=== PATIENT | male | born 1945 | race African-American/Black ===

== ENCOUNTER 2016-08-11 02:42 | Emergency (ER) | payer BC ==
[~2016-08-11] VITALS: Ht 180.3 cm; Wt 87.5 kg
[2016-08-11] MEDS ORDERED: IV NORMAL SALINE 1000ML BAG 1,000 ML IV SCH (03:00)
--- NOTE | 2016-08-11 03:03 | PHYS DOC ---
Past Medical History Past Medical History: Hypertension Past Surgical History: No Surgical History Alcohol Use: None Drug Use: None Adult General Chief Complaint Chief Complaint: DIZZY/LIGHT HEADED HPI HPI Patient is a 71 year old male who presents with complaint of dizziness and " not feeling right." Patient states that this started shortly prior to arrival. Patient states that he went to bed at approximately 0130 this morning. Patient awoke with dizziness that worsens when he stood up and tried to use the restroom. Patient states that he is having numbness over both upper extremities into the back of his head. Patient denies any loss of vision or difficulty with swallowing. Patient states that he feels like he is having slight difficulty coming up with words at this time. Patient is accompanied by his who states that the patient does not sound different from baseline and she does not feel that he is slurring his words. Patient denies any pain currently. Patient states that he is having a hard time explaining exactly how he is feeling that he just knows that he does not feel well. Patient states that he is on blood pressure medication but is unable to name the medication that he takes currently. Review of Systems Review of Systems Constitutional: Denies fever or chills [] Eyes: Denies change in visual acuity, redness, or eye pain [] HENT: Denies nasal congestion or sore throat [] Respiratory: Denies cough or shortness of breath [] Cardiovascular: Denies chest pain or edema [] GI: Denies abdominal pain, nausea, vomiting, bloody stools or diarrhea [] : Denies dysuria or hematuria [] Musculoskeletal: Denies back pain or joint pain [] Integument: Denies rash or skin lesions [] Neurologic: Numbness, dizziness, denies weakness [] Current Medications Current Medications Current Medications Medications (Trade) Dose Ordered Sig/Solo Start Time Stop Time Status Last Admin Dose Admin Hydralazine HCl (Apresoline) 10 mg 1X ONCE 08/11/16 03:15 08/11/16 03:16 DC 08/11/16 03:10 10 MG Sodium Chloride 1,000 ml @ 100 mls/hr Q10H 08/11/16 03:00 08/11/16 12:59 08/11/16 03:08 100 MLS/HR Allergies Allergies Allergies Coded Allergies Type Severity Reaction Last Updated Verified No Known Drug Allergies 08/11/16 No Physical Exam Physical Exam Constitutional: Well developed, well nourished, no acute distress, non-toxic appearance. [] HENT: Normocephalic, atraumatic, bilateral external ears normal, oropharynx moist, no oral exudates, nose normal. [] Eyes: PERRLA, EOMI, conjunctiva normal, no discharge. [] Neck: Normal range of motion, no tenderness, supple, no stridor. [] Cardiovascular:Heart rate regular rhythm, no murmur [] Lungs & Thorax: Bilateral breath sounds clear to auscultation [] Abdomen: Bowel sounds normal, soft, no tenderness, no masses, no pulsatile masses. [] Skin: Warm, dry, no erythema, no rash. [] Back: No tenderness, no CVA tenderness. [] Extremities: No tenderness, no cyanosis, no clubbing, ROM intact, no edema. [] Neurologic: Alert and oriented X 3, normal motor function, normal sensory function, no focal deficits noted. [] Current Patient Data Vital Signs Vital Signs Date Time Temp Pulse Resp B/P (MAP) Pulse Ox O2 Delivery O2 Flow Rate FiO2 08/11/16 03:10 66 177/91 08/11/16 03:00 98.0 18 92 Room Air 98.0 Lab Values Laboratory Tests Test 08/11/16 03:05 08/11/16 03:40 White Blood Count 8.0 x10^3/uL (4.0-11.0) Red Blood Count 3.57 x10^6/uL (4.30-5.70) L Hemoglobin 11.6 g/dL (13.0-17.5) L Hematocrit 34.8 % (39.0-53.0) L Mean Corpuscular Volume 98 fL (79-100) Mean Corpuscular Hemoglobin 33 pg (25-35) Mean Corpuscular Hemoglobin Concent 33 g/dL (31-37) Red Cell Distribution Width 15.7 % (11.5-14.5) H Platelet Count 211 x10^3/uL (140-400) Neutrophils (%) (Auto) 63 % (31-73) Lymphocytes (%) (Auto) 26 % (24-48) Monocytes (%) (Auto) 9 % (0-9) Eosinophils (%) (Auto) 1 % (0-3) Basophils (%) (Auto) 1 % (0-3) Neutrophils # (Auto) 5.1 x10^3uL (1.8-7.7) Lymphocytes # (Auto) 2.1 x10^3/uL (1.0-4.8) Monocytes # (Auto) 0.7 x10^3/uL (0.0-1.1) Eosinophils # (Auto) 0.1 x10^3/uL (0.0-0.7) Basophils # (Auto) 0.1 x10^3/uL (0.0-0.2) Prothrombin Time 12.5 SEC (11.7-14.0) Prothrombin Time INR 1.0 (0.8-1.1) PTT 30 SEC (24-38) Sodium Level 141 mmol/L (136-145) Potassium Level 3.7 mmol/L (3.5-5.1) Chloride Level 104 mmol/L (98-107) Carbon Dioxide Level 26 mmol/L (21-32) Anion Gap 11 (6-14) Blood Urea Nitrogen 25 mg/dL (8-26) Creatinine 1.2 mg/dL (0.7-1.3) Estimated GFR (Cockcroft-Gault) 72.2 BUN/Creatinine Ratio 21 (6-20) H Glucose Level 151 mg/dL (70-99) H Calcium Level 9.1 mg/dL (8.5-10.1) Magnesium Level 2.1 mg/dL (1.8-2.4) Total Bilirubin 0.3 mg/dL (0.2-1.0) Aspartate Amino Transferase (AST) 35 U/L (15-37) Alanine Aminotransferase (ALT) 48 U/L (16-63) Alkaline Phosphatase 45 U/L (46-116) L Total Protein 7.7 g/dL (6.4-8.2) Albumin 3.8 g/dL (3.4-5.0) Albumin/Globulin Ratio 1.0 (1.0-1.7) Urine Collection Type Unknown Urine Color Yellow Urine Clarity Clear Urine pH 7.5 Urine Specific [place] 1.010 Urine Protein Negative mg/dL (NEG-TRACE) Urine Glucose (UA) Negative mg/dL (NEG) Urine Ketones (Stick) Negative mg/dL (NEG) Urine Blood Negative (NEG) Urine Nitrite Negative (NEG) Urine Bilirubin Negative (NEG) Urine Urobilinogen Dipstick 0.2 mg/dL (0.2 mg/dL) Urine Leukocyte Esterase Negative (NEG) Urine RBC 0 /HPF (0-2) Urine WBC 0 /HPF (0-4) Urine Squamous Epithelial Cells Occ /LPF Urine Bacteria 0 /HPF (0-FEW) Laboratory Tests 08/11/16 03:05 Laboratory Tests 08/11/16 03:05 EKG EKG Interpreted by me: Heart rate 66, sinus rhythm, frequent PACs, normal intervals , normal axis, no acute ST/T-wave abnormalities present [] Radiology/Procedures Radiology/Procedures One view AP chest x-ray interpreted by me: No infiltrate, no effusions, normal cardiac silhouette [facility] [address] [place] [address] IMAGING REPORT Signed PATIENT: TONA SPENCER ACCOUNT: [id number] : 1945 LOCATION: ER AGE: 71 SEX: M EXAM STATUS: REG ER ORD. PHYSICIAN: ERINN SHOEMAKER MD REASON: dizziness PROCEDURE: CT HEAD WO CONTRAST INDICATION: Hypertension and weakness COMPARISON: None TECHNIQUE: Axial CT images obtained through the head. One or more of the following individualized dose reduction techniques were utilized for this examination: 1. Automated exposure control; 2. Adjustment of the mA and/or kV according to patient size; 3. Use of iterative reconstruction technique. FINDINGS: No midline shift. Ventricles and sulci are prominent. Basilar cistern patent. No gross hemorrhage or intracranial mass. No displaced skull fracture. Regions of low attenuation of the white matter. IMPRESSION: No acute intracranial hemorrhage. Regions of low attenuation of the white matter. Nonspecific but frequently secondary to chronic small vessel ischemic disease. Electronically signed by: Fabiola Turk (August 11, 2016 03:50:08) DICTATED and SIGNED BY: FABIOLA TURK MD DATE: 08/11/16 0350 CC: ERINN SHOEMAKER MD; NABILA JAIMES ~ [] Course & Med Decision Making Course & Med Decision Making Pertinent Labs and Imaging studies reviewed. (See chart for details) Patient was found have significantly elevated blood pressure in the emergency department. Patient was given IV hydralazine with adequate reduction and patient 's blood pressure. The patient's symptoms were reported as on reevaluation. Patient shows no evidence of any focal neurologic deficits. On further questioning, patient admits to excessive sodium intake yesterday which may have contributed to the patient's blood pressure spike. Advised to continue on patient's home medications and to follow-up in the next 2-3 days the patient's primary doctor for reevaluation. Advised return emergency department for any worsening symptoms. Patient voiced understanding and in agreement with treatment plan. Dragon Disclaimer Dragon Disclaimer This electronic medical record was generated, in whole or in part, using a voice recognition dictation system. Departure Departure Impression: Primary Impression: Hypertension Disposition: 01 HOME, SELF-CARE Condition: IMPROVED Referrals: NABILA JAIMES (PCP) Patient Instructions: Hypertension Additional Instructions: Follow-up with your primary doctor in the next 2-3 days. Return to the emergency department for any worsening symptoms. Problem Qualifiers Primary Impression: Hypertension Hypertension type: essential hypertension Qualified Codes: I10 - Essential ( primary) hypertension ERINN SHOEMAKER MD August 11, 2016 03:03
[2016-08-11 03:13] LABS: BASO # 0.1 x10^3/uL (0.0-0.2); BASO % 1 % (0-3); EOS % 1 % (0-3); HEMATOCRIT 34.8 % (39.0-53.0); HEMOGLOBIN 11.6 g/dL (13.0-17.5); LYMPH # 2.1 x10^3/uL (1.0-4.8); LYMPH % 26 % (24-48); MEAN CORPUSCULAR HEMOGLOBIN 33 pg (25-35); MEAN CORPUSCULAR HGB CONC 33 g/dL (31-37); MEAN CORPUSCULAR VOLUME 98 fL (79-100); MONO % 9 % (0-9); NEUT % 63 % (31-73); PLATELET COUNT 211 x10^3/uL (140-400); RED BLOOD COUNT 3.57 x10^6/uL (4.30-5.70); RED CELL DISTRIBUTION WIDTH 15.7 % (11.5-14.5)
[2016-08-11] MEDS ORDERED: hydrALAZINE 20 MG/ML VIAL. IVP ONE (03:15)
[2016-08-11 03:21] LABS: CALCIUM 9.1 mg/dL (8.5-10.1); CREATININE 1.2 mg/dL (0.7-1.3); GFR 72.2; POTASSIUM 3.7 mmol/L (3.5-5.1)
[2016-08-11 03:23] LABS: PROTHROMBIN TIME PATIENT 12.5 SEC (11.7-14.0)
[2016-08-11 03:27] LABS: ALBUMIN 3.8 g/dL (3.4-5.0); MAGNESIUM 2.1 mg/dL (1.8-2.4); TOTAL BILIRUBIN 0.3 mg/dL (0.2-1.0); TOTAL PROTEIN 7.7 g/dL (6.4-8.2)
[2016-08-11 03:48] LABS: BILIRUBIN,URINE NEGATIVE (NEG); GLUCOSE,URINE NEGATIVE (NEG); NITRITE,URINE NEGATIVE (NEG); PH,URINE 7.5; PROTEIN,URINE NEGATIVE (NEG-TRACE); UROBILINOGEN,URINE 0.2 mg/dL (0.2 mg/dL)
--- NOTE | 2016-08-11 03:51 | RAD ---
INDICATION: Hypertension and weakness COMPARISON: None TECHNIQUE: Axial CT images obtained through the head. One or more of the following individualized dose reduction techniques were utilized for this examination: 1. Automated exposure control; 2. Adjustment of the mA and/or kV according to patient size; 3. Use of iterative reconstruction technique. FINDINGS: No midline shift. Ventricles and sulci are prominent. Basilar cistern patent. No gross hemorrhage or intracranial mass. No displaced skull fracture. Regions of low attenuation of the white matter. IMPRESSION: No acute intracranial hemorrhage. Regions of low attenuation of the white matter. Nonspecific but frequently secondary to chronic small vessel ischemic disease. Electronically signed by: Cullen Chase (August 11, 2016 03:50:08)
[2016-08-11 03:53] LABS: BACTERIA,URINE 0 /HPF (0-FEW); RBC,URINE 0 /HPF (0-2); SQUAMOUS EPITHELIAL CELL,UR OCC /LPF; WBC,URINE 0 /HPF (0-4)
[2016-08-11 04:38] VITALS: BP 140/80
--- NOTE | 2016-08-11 06:30 | EKG ---
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
--- NOTE | 2016-08-11 07:16 | RAD ---
Portable chest, 08/11/2016: History: Hypertension, weakness Comparison is made to a study from 01/28/2012. The heart size and pulmonary vascularity are normal. There is mild tortuosity of the thoracic aorta. No pulmonary infiltrate is seen. There is no evidence of pleural fluid. Moderate spurring is present in the spine. IMPRESSION: No acute cardiopulmonary abnormality is detected.
== END 2016-08-11 04:47 | disposition home or self-care (01) ==
LOC: ER 02:42
DX: I10 Essential (primary) hypertension (principal); R42 Dizziness and giddiness; R20.0 Anesthesia of skin; R53.1 Weakness
CPT/HCPCS: 36415; 70450; 71010; 80053; 81001; 83735; 85027; 85610; 85730; 93005; 96361; 96374; 99285; J0360; J7030

== ENCOUNTER → 2016-08-17 | Outpatient (CLI) | payer BC, MEDICARE ==
[2016-08-11 04:38] VITALS: BP 140/80
--- NOTE | 2016-08-17 10:23 | RAD ---
Renal ultrasound with deep Doppler, 08/17/2016: History: Chronic kidney disease, hypertension The right kidney measures 9.1 cm in length while the left kidney measures 9.8 cm. There is no evidence of hydronephrosis or a renal mass. The renal parenchymal echogenicity is within normal limits. No abnormal perinephric process is seen. Doppler interrogation of the main renal arteries was performed including grayscale, color-flow and spectral Doppler analysis.. No high velocity is seen in either main renal artery to suggest significant renal artery stenosis. No parvus/tardus phenomena is evident. IMPRESSION: 1. No significant renal abnormality is detected. 2. No duplex evidence of significant renal artery stenosis.
== END | disposition home or self-care (01) ==
LOC: US 07:44
PROVIDERS: ATTEND Internal Medicine Nephrology
DX: I12.9 Hypertensive chronic kidney disease with stage 1 through stage 4 chronic kidney disease, or unspecified chronic kidney disease (principal); N18.3 Chronic kidney disease, stage 3 (moderate)
CPT/HCPCS: 76770; 93975

== ENCOUNTER 2017-07-01 21:37 | Emergency (ER) | payer BC, MEDICARE ==
[2017-07-01 22:01] LABS: ADD MAN DIFF? NO
[2017-07-01 22:05] LABS: BASO % 1 % (0-3); EOS # 0.1 x10^3/uL (0.0-0.7); EOS % 1 % (0-3); HEMATOCRIT 44.6 % (39.0-53.0); LYMPH # 1.8 x10^3/uL (1.0-4.8); LYMPH % 24 % (24-48); MEAN CORPUSCULAR HEMOGLOBIN 32 pg (25-35); MEAN CORPUSCULAR HGB CONC 34 g/dL (31-37); MEAN CORPUSCULAR VOLUME 95 fL (79-100); MONO # 0.7 x10^3/uL (0.0-1.1); MONO % 9 % (0-9); NEUT # 5.1 x10^3uL (1.8-7.7); NEUT % 66 % (31-73); PLATELET COUNT 192 x10^3/uL (140-400); RED BLOOD COUNT 4.72 x10^6/uL (4.30-5.70); RED CELL DISTRIBUTION WIDTH 14.1 % (11.5-14.5); WHITE BLOOD COUNT 7.6 x10^3/uL (4.0-11.0)
[2017-07-01 22:22] LABS: ANION GAP 8 (6-14); BLOOD UREA NITROGEN 19 mg/dL (8-26); CALCIUM 9.5 mg/dL (8.5-10.1); CARBON DIOXIDE 28 mmol/L (21-32); CHLORIDE 102 mmol/L (98-107); CREATININE 1.3 mg/dL (0.7-1.3); GFR 65.7; GLUCOSE 149 mg/dL (70-99); POTASSIUM 3.6 mmol/L (3.5-5.1); SODIUM 138 mmol/L (136-145)
[2017-07-01] MEDS: diphenhydrAMINE 50 MG/ML VIAL IVP (22:26)
[2017-07-01] MEDS: IV NORMAL SALINE 1000ML BAG 1,000 ML IV (22:27)
[2017-07-01] MEDS: METOCLOPRAMIDE HCL 10 MG/2 ML VIAL. IV (22:27)
[2017-07-01] MEDS: DEXAMETHASONE SOD PHOS 20 MG/5 ML VIAL. IV (22:27)
== END 2017-07-01 23:50 | disposition home or self-care (01) ==
LOC: ER 23:50
DX: G44.59 Other complicated headache syndrome (principal); E11.9 Type 2 diabetes mellitus without complications; E78.00 Pure hypercholesterolemia, unspecified; I10 Essential (primary) hypertension; Z87.891 Personal history of nicotine dependence
CPT/HCPCS: 36415; 70450; 80048; 85025; 96361; 96374; 96375; 99285-25; J1100; J1200; J2765; J7030

== ENCOUNTER 2017-12-15 19:28 | Emergency (ER) | payer BC ==
[~2017-12-15] VITALS: Ht 157.5 cm; Wt 74.8 kg
[2017-12-15 20:00] VITALS: BP 175/80
--- NOTE | 2017-12-15 20:41 | PHYS DOC ---
Past Medical History Past Medical History: Diabetes-Type II, High Cholesterol, Hypertension Past Surgical History: No Surgical History Alcohol Use: Occasionally Drug Use: None Adult General Chief Complaint Chief Complaint: INSECT BITE HPI HPI Patient is a 72 year old male who reports that this evening he was mowing the lawn and had multiple bee stings. He denies any history of bee sting reactions but was concerned with the number of stings he encountered. He denies swelling or itching of his throat or tongue and he denies any shortness of breath. Review of Systems Review of Systems Constitutional: Denies fever or chills HEENT: Denies trouble swallowing, denies oral pain. Denies itchy eyes. Respiratory: Denies cough or shortness of breath Cardiovascular: Denies chest pain GI: Denies abdominal pain, nausea, vomiting, bloody stools or diarrhea Musculoskeletal: Denies back pain or joint pain Integument: Reports skin erythema Neurologic: Denies headache, focal weakness or sensory changes All other systems were reviewed and found to be within normal limits, except as documented in this note. Current Medications Current Medications Current Medications Medications (Trade) Dose Ordered Sig/Solo Start Time Stop Time Status Last Admin Dose Admin Diphenhydramine HCl (Benadryl) 25 mg 1X ONCE 12/15/17 20:45 12/15/17 20:47 DC 12/15/17 21:17 25 MG Famotidine (Pepcid) 20 mg 1X ONCE 12/15/17 20:45 12/15/17 20:47 DC Prednisone (Prednisone) 60 mg 1X ONCE 12/15/17 20:45 12/15/17 20:47 DC 12/15/17 21:18 60 MG Allergies Allergies Allergies Coded Allergies Type Severity Reaction Last Updated Verified No Known Drug Allergies 08/11/16 No Physical Exam Physical Exam Constitutional: Well developed, well nourished, no acute distress, non-toxic appearance. HENT: Normocephalic, atraumatic, bilateral external ears normal, oropharynx moist, no oral exudates, nose normal. Eyes: PERRLA, EOMI, conjunctiva normal, no discharge. Neck: Normal range of motion, no tenderness, supple, no stridor. Cardiovascular:Heart rate regular rhythm, no murmur Lungs & Thorax: Bilateral breath sounds clear to auscultation Abdomen: Bowel sounds normal, soft, no tenderness, no masses, no pulsatile masses. Skin: Warm, dry, dark skinned male, mild erythema at site of insect stings on hands and face. Back: No tenderness, no CVA tenderness. Extremities: No tenderness, no cyanosis, no clubbing, ROM intact, no edema. Neurologic: Alert and oriented X 3, normal motor function, normal sensory function, no focal deficits noted. Psychologic: Affect normal, judgement normal, mood normal. Current Patient Data Vital Signs Vital Signs Date Time Temp Pulse Resp B/P (MAP) Pulse Ox O2 Delivery O2 Flow Rate FiO2 12/15/17 20:00 98.0 76 18 175/80 (111) 99 Room Air 98.0 EKG EKG [] Radiology/Procedures Radiology/Procedures [] Course & Med Decision Making Course & Med Decision Making Pertinent Labs and Imaging studies reviewed. (See chart for details) Pt was in ER for over an hour and did not develop any symptoms, in fact was starting to feel improved even before medications. He was given prednisone, pepcid and benadryl here in ER and was asked to continue antihistamines for next couple of days. Pt is a diet controlled diabetic so we will avoid any further steroids then today's dose since he is mostly asymptomatic. Pt to return with any worsening of symptoms. Dragon Disclaimer Dragon Disclaimer This electronic medical record was generated, in whole or in part, using a voice recognition dictation system. Departure Departure Impression: Primary Impression: Bee sting Disposition: 01 HOME, SELF-CARE Condition: STABLE Referrals: NABILA JAIMES (PCP) Patient Instructions: Bee, Wasp, or Hornet Sting Additional Instructions: Cool compresses can help at the sting site. Ibuprofen or aleve can also help with pain. Scripts Cetirizine Hcl (ZYRTEC) 10 Mg Tablet 1 TAB PO DAILY, #6 TAB 2 Refills Prov: AILYN HARTMANN 12/15/17 Attending Signature Attending Signature I have reviewed the PA/SCREEN TENDER's note and plan of care. I was available for consultation as needed during the patient's visit in the emergency department. I agree with the clinical impression, plan, and disposition. AILYN HARTMANN Dec 15, 2017 20:41 GEORGE VOGEL DO Dec 16, 2017 03:51
[2017-12-15] MEDS ORDERED: predniSONE 20 MG TABLET PO ONE (20:45)
[2017-12-15] MEDS ORDERED: diphenhydrAMINE HCL 25 MG CAPSULE PO ONE (20:45)
[2017-12-15] MEDS ORDERED: CETI10TA22 PO (20:45)
[2017-12-15] MEDS ORDERED: FAMOTIDINE 20 MG TABLET. PO ONE (20:45)
== END 2017-12-15 21:24 | disposition home or self-care (01) ==
LOC: ER 19:28
DX: T63.441A Toxic effect of venom of bees, accidental (unintentional), initial encounter (principal); E11.9 Type 2 diabetes mellitus without complications; E78.00 Pure hypercholesterolemia, unspecified; I10 Essential (primary) hypertension; Y92.89 Other specified places as the place of occurrence of the external cause
CPT/HCPCS: 99283; J7512; Q0163

== ENCOUNTER 2018-03-04 03:09 | Emergency (ER) | payer BC ==
[~2018-03-04] VITALS: Ht 180.3 cm; Wt 83.9 kg
[~2018-03-04 03:09] MED LIST: CETI10TA22 PO
[2018-03-04 03:59] LABS: BILIRUBIN,URINE NEGATIVE (NEG); CLARITY,URINE CLEAR; COLOR,URINE YELLOW; NITRITE,URINE NEGATIVE (NEG); PH,URINE 6.5; PROTEIN,URINE 30 mg/dL (NEG-TRACE)
[2018-03-04 04:02] LABS: BASO # 0.1 x10^3/uL (0.0-0.2); BASO % 1 % (0-3); EOS # 0.1 x10^3/uL (0.0-0.7); EOS % 1 % (0-3); HEMATOCRIT 38.8 % (39.0-53.0); HEMOGLOBIN 13.5 g/dL (13.0-17.5); LYMPH # 1.7 x10^3/uL (1.0-4.8); LYMPH % 22 % (24-48); MEAN CORPUSCULAR HEMOGLOBIN 33 pg (25-35); MEAN CORPUSCULAR HGB CONC 35 g/dL (31-37); MEAN CORPUSCULAR VOLUME 96 fL (79-100); MONO # 0.7 x10^3/uL (0.0-1.1); MONO % 9 % (0-9); NEUT # 5.3 x10^3uL (1.8-7.7); NEUT % 67 % (31-73); PLATELET COUNT 160 x10^3/uL (140-400); RED BLOOD COUNT 4.05 x10^6/uL (4.30-5.70); RED CELL DISTRIBUTION WIDTH 13.8 % (11.5-14.5); WHITE BLOOD COUNT 7.8 x10^3/uL (4.0-11.0)
[2018-03-04 04:06] LABS: BARBITURATES NEG (NEG); BENZODIAZEPINES NEG (NEG); CANNABINOIDS POS (NEG); COCAINE NEG (NEG); METHADONE NEG (NEG); OPIATES NEG (NEG); PHENCYCLIDINE NEG (NEG)
[2018-03-04 04:10] LABS: AMPHETAMINE/METHAMPHETAMINE NEG (NEG)
[2018-03-04 04:14] LABS: BACTERIA,URINE 0 /HPF (0-FEW); RBC,URINE OCC /HPF (0-2); SQUAMOUS EPITHELIAL CELL,UR OCC /LPF; WBC,URINE OCC /HPF (0-4)
[2018-03-04 04:14] LABS: PROTHROMBIN TIME PATIENT 13.4 SEC (11.7-14.0)
[2018-03-04 04:16] LABS: CALCIUM 9.4 mg/dL (8.5-10.1); CREATININE 1.4 mg/dL (0.7-1.3); GFR 60.3; POTASSIUM 3.8 mmol/L (3.5-5.1)
[2018-03-04 04:22] LABS: ALBUMIN 3.8 g/dL (3.4-5.0); MAGNESIUM 2.2 mg/dL (1.8-2.4); TOTAL BILIRUBIN 0.3 mg/dL (0.2-1.0); TOTAL PROTEIN 7.8 g/dL (6.4-8.2)
[2018-03-04 04:29] VITALS: BP 150/79
--- NOTE | 2018-03-04 04:31 | RAD ---
Examination: CT HEAD WO CONTRAST History: FACIAL NUMBNESS, SLURRED SPEECH. Comparison/Correlation: 07/01/2017 CT head without contrast Findings: Axial images of the head were obtained without contrast. Atrophy and chronic ischemic changes white matter noted. No evolving infarct visualized. No midline shift or mass effect. Bony structures are unremarkable. Mild mucosal thickening of ethmoid air cells evident. No depressed fracture. Impression: No intracranial hemorrhage. Electronically signed by: Lavelle Dewitt MD (03/04/2018 4:27 AM) [facility]
--- NOTE | 2018-03-04 04:44 | PHYS DOC ---
Past Medical History Past Medical History: Diabetes-Type II, High Cholesterol, Hypertension Past Surgical History: No Surgical History Alcohol Use: Occasionally Drug Use: None Adult General Chief Complaint Chief Complaint: NEURO SYMPTOMS/DEFICITS [facility] Patient is 72-year-old male who presents with complaint of just not feeling right this morning. Patient states that he had gotten off of work earlier this morning and had gone to bed but got right back up after about an hour stating that he just wasn't feeling quite right. Patient states that he checked his blood pressure and found it was quite elevated. He states that he was also having some numbness throughout his entire face. He denies any lateralizing weakness. He also states that he felt like his speech was a little bit off. He denies headache, chest pain, shortness of breath, nausea or vomiting. Review of Systems Review of Systems Constitutional: Denies fever or chills [] Eyes: Denies change in visual acuity, redness, or eye pain [] Respiratory: Denies cough or shortness of breath [] Cardiovascular: No additional information not addressed in HPI [] Musculoskeletal: Denies back pain or joint pain [] Integument: Denies rash or skin lesions [] Neurologic: Denies headache or lateralizing weakness. Admits to facial numbness/ tingling.[] All other systems were reviewed and found to be within normal limits, except as documented in this note. Allergies Allergies Allergies Coded Allergies Type Severity Reaction Last Updated Verified No Known Drug Allergies 08/11/16 No Physical Exam Physical Exam Constitutional: Well developed, well nourished, no acute distress, non-toxic appearance. [] HENT: Normocephalic, atraumatic, bilateral external ears normal, oropharynx moist, no oral exudates, nose normal. [] Eyes: PERRLA, EOMI, conjunctiva normal, no discharge. [] Neck: Normal range of motion, no tenderness, supple, no stridor. [] Cardiovascular: Regular rate and rhythm[] Lungs & Thorax: Bilateral breath sounds clear to auscultation [] Abdomen: Bowel sounds normal, soft, no tenderness. [] Skin: Warm, dry, no erythema, no rash. [] Extremities: No tenderness, no cyanosis, no clubbing, ROM intact, no edema. [] Neurologic: Alert and oriented X 3. Cranial nerves II through XII are grossly intact bilaterally. Muscle strength is 5 out of 5 and symmetric for upper and lower extremities. There is no pronator drift noted on exam. Sensory is intact throughout. No focal deficits noted on exam. [] Current Patient Data Vital Signs Vital Signs Date Time Temp Pulse Resp B/P (MAP) Pulse Ox O2 Delivery O2 Flow Rate FiO2 03/04/18 04:29 60 16 98 03/04/18 03:10 99.0 152/81 (104) Room Air 99.0 Lab Values Laboratory Tests Test 03/04/18 03:40 03/04/18 03:47 White Blood Count 7.8 x10^3/uL (4.0-11.0) Red Blood Count 4.05 x10^6/uL (4.30-5.70) L Hemoglobin 13.5 g/dL (13.0-17.5) Hematocrit 38.8 % (39.0-53.0) L Mean Corpuscular Volume 96 fL (79-100) Mean Corpuscular Hemoglobin 33 pg (25-35) Mean Corpuscular Hemoglobin Concent 35 g/dL (31-37) Red Cell Distribution Width 13.8 % (11.5-14.5) Platelet Count 160 x10^3/uL (140-400) Neutrophils (%) (Auto) 67 % (31-73) Lymphocytes (%) (Auto) 22 % (24-48) L Monocytes (%) (Auto) 9 % (0-9) Eosinophils (%) (Auto) 1 % (0-3) Basophils (%) (Auto) 1 % (0-3) Neutrophils # (Auto) 5.3 x10^3uL (1.8-7.7) Lymphocytes # (Auto) 1.7 x10^3/uL (1.0-4.8) Monocytes # (Auto) 0.7 x10^3/uL (0.0-1.1) Eosinophils # (Auto) 0.1 x10^3/uL (0.0-0.7) Basophils # (Auto) 0.1 x10^3/uL (0.0-0.2) Prothrombin Time 13.4 SEC (11.7-14.0) Prothrombin Time INR 1.1 (0.8-1.1) Sodium Level 135 mmol/L (136-145) L Potassium Level 3.8 mmol/L (3.5-5.1) Chloride Level 103 mmol/L (98-107) Carbon Dioxide Level 24 mmol/L (21-32) Anion Gap 8 (6-14) Blood Urea Nitrogen 26 mg/dL (8-26) Creatinine 1.4 mg/dL (0.7-1.3) H Estimated GFR (Cockcroft-Gault) 60.3 BUN/Creatinine Ratio 19 (6-20) Glucose Level 112 mg/dL (70-99) H Calcium Level 9.4 mg/dL (8.5-10.1) Magnesium Level 2.2 mg/dL (1.8-2.4) Total Bilirubin 0.3 mg/dL (0.2-1.0) Aspartate Amino Transferase (AST) 27 U/L (15-37) Alanine Aminotransferase (ALT) 38 U/L (16-63) Alkaline Phosphatase 55 U/L (46-116) Troponin I Quantitative < 0.017 ng/mL (0.000-0.055) Total Protein 7.8 g/dL (6.4-8.2) Albumin 3.8 g/dL (3.4-5.0) Albumin/Globulin Ratio 1.0 (1.0-1.7) Thyroid Stimulating Hormone (TSH) 1.130 uIU/mL (0.358-3.74) Ethyl Alcohol Level < 10 mg/dL (0-10) Urine Collection Type Unknown Urine Color Yellow Urine Clarity Clear Urine pH 6.5 Urine Specific Solo 1.015 Urine Protein 30 mg/dL (NEG-TRACE) Urine Glucose (UA) Negative mg/dL (NEG) Urine Ketones (Stick) Trace mg/dL (NEG) Urine Blood Negative (NEG) Urine Nitrite Negative (NEG) Urine Bilirubin Negative (NEG) Urine Urobilinogen Dipstick 1.0 mg/dL (0.2 mg/dL) Urine Leukocyte Esterase Negative (NEG) Urine RBC Occ /HPF (0-2) Urine WBC Occ /HPF (0-4) Urine Squamous Epithelial Cells Occ /LPF Urine Bacteria 0 /HPF (0-FEW) Urine Mucus Slight /LPF Urine Opiates Screen Neg (NEG) Urine Methadone Screen Neg (NEG) Urine Barbiturates Neg (NEG) Urine Phencyclidine Screen Neg (NEG) Urine Amphetamine/Methamphetamine Neg (NEG) Urine Benzodiazepines Screen Neg (NEG) Urine Cocaine Screen Neg (NEG) Urine Cannabinoids Screen Pos (NEG) Urine Ethyl Alcohol Neg (NEG) Laboratory Tests 03/04/18 03:40 Laboratory Tests 03/04/18 03:40 EKG EKG [] Interpretation Time: EKG demonstrates normal sinus rhythm with PACs. Radiology/Procedures Radiology/Procedures [] Impressions: He had without contrast demonstrates no acute intracranial abnormalities. Course & Med Decision Making Course & Med Decision Making Pertinent Labs and Imaging studies reviewed. (See chart for details) [] Dragon Disclaimer Dragon Disclaimer This electronic medical record was generated, in whole or in part, using a voice recognition dictation system. Departure Departure Impression: Primary Impression: Hypertension Disposition: 01 HOME, SELF-CARE Condition: STABLE Referrals: NABILA JAIMES (PCP) Patient Instructions: Hypertension Problem Qualifiers Primary Impression: Hypertension Hypertension type: essential hypertension Qualified Codes: I10 - Essential ( primary) hypertension JON GARZA Jr. DO Mar 04, 2018 04:44
--- NOTE | 2018-03-04 06:29 | EKG ---
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
== END 2018-03-04 04:53 | disposition home or self-care (01) ==
LOC: ER 03:09
DX: I10 Essential (primary) hypertension (principal); R20.0 Anesthesia of skin; E78.00 Pure hypercholesterolemia, unspecified; E11.9 Type 2 diabetes mellitus without complications
CPT/HCPCS: 36415; 70450; 80053; 80307; 81001; 83735; 84443; 84484; 85025; 85610; 93005; 99284; G0480

== ENCOUNTER 2018-03-18 03:10 | Emergency (ER) | payer BC ==
[~2018-03-18] VITALS: Ht 180.3 cm; Wt 79.8 kg
--- NOTE | 2018-03-18 03:59 | PHYS DOC ---
Past Medical History Past Medical History: Cancer, Diabetes-Type II, High Cholesterol, Hypertension Additional Past Medical Histor: PROSTATE CANCER Past Surgical History: No Surgical History Alcohol Use: Occasionally Drug Use: None Adult General Chief Complaint Chief Complaint: HYPERTENSION HPI HPI Patient is a 72 year old MALE who presents with high blood pressure and headache. This started this evening. Patient denies this being the worst headache of life. No photophobia nor phonophobia. Headache gets worse when he coughs. No home medication has been taken for this headache. No recent changes in his blood pressure medication. Patient does report that he had 3 alcohol drinks earlier today. [] Review of Systems Review of Systems Constitutional: Denies fever or chills [] Eyes: Denies change in visual acuity, redness, or eye pain [] HENT: Denies nasal congestion or sore throat [] Respiratory: Denies cough or shortness of breath [] Cardiovascular: No no chest pain or palpitations[] GI: Denies abdominal pain, nausea, vomiting, bloody stools or diarrhea [] : Denies dysuria or hematuria [] Musculoskeletal: Denies back pain or joint pain [] Integument: Denies rash or skin lesions [] Neurologic: Denies focal weakness or sensory changes [] Endocrine: Denies polyuria or polydipsia [] All other systems were reviewed and found to be within normal limits, except as documented in this note. Current Medications Current Medications Current Medications Medications (Trade) Dose Ordered Sig/Solo Start Time Stop Time Status Last Admin Dose Admin Acetaminophen (Tylenol) 1,000 mg 1X ONCE 03/18/18 04:30 03/18/18 04:31 DC 03/18/18 04:24 1,000 MG Sodium Chloride 500 ml @ 500 mls/hr 1X ONCE 03/18/18 04:30 03/18/18 05:29 03/18/18 04:24 500 MLS/HR Allergies Allergies Allergies Coded Allergies Type Severity Reaction Last Updated Verified No Known Drug Allergies 08/11/16 No Physical Exam Physical Exam Constitutional: Well developed, well nourished, no acute distress, non-toxic appearance. [] HENT: Normocephalic, atraumatic, bilateral external ears normal, oropharynx moist, no oral exudates, nose normal. [] Eyes: PERRLA, EOMI, conjunctiva normal, no discharge. [] Neck: Normal range of motion, no tenderness, supple, no stridor. No meningismus , no cervical lymphadenopathy[] Cardiovascular:Heart rate was in the normal range with an irregular rhythm, no murmur [] Lungs & Thorax: Bilateral breath sounds clear to auscultation [] Abdomen: Bowel sounds normal, soft, no tenderness, no masses, no pulsatile masses. [] Skin: Warm, dry, no erythema, no rash. [] Back: No tenderness, no CVA tenderness. [] Extremities: No tenderness, no cyanosis, no clubbing, ROM intact, no edema. [] Neurologic: Alert and oriented X 3, normal motor function, normal sensory function, no focal deficits noted. [] Psychologic: Affect normal, judgement normal, mood normal. [] Current Patient Data Vital Signs Vital Signs Date Time Temp Pulse Resp B/P (MAP) Pulse Ox O2 Delivery O2 Flow Rate FiO2 03/18/18 03:20 98.1 61 16 142/68 (92) 98 Room Air 98.1 Lab Values Laboratory Tests Test 03/18/18 04:00 White Blood Count 6.7 x10^3/uL (4.0-11.0) Red Blood Count 4.05 x10^6/uL (4.30-5.70) L Hemoglobin 13.6 g/dL (13.0-17.5) Hematocrit 38.7 % (39.0-53.0) L Mean Corpuscular Volume 95 fL (79-100) Mean Corpuscular Hemoglobin 34 pg (25-35) Mean Corpuscular Hemoglobin Concent 35 g/dL (31-37) Red Cell Distribution Width 13.7 % (11.5-14.5) Platelet Count 176 x10^3/uL (140-400) Neutrophils (%) (Auto) 68 % (31-73) Lymphocytes (%) (Auto) 22 % (24-48) L Monocytes (%) (Auto) 9 % (0-9) Eosinophils (%) (Auto) 1 % (0-3) Basophils (%) (Auto) 1 % (0-3) Neutrophils # (Auto) 4.5 x10^3uL (1.8-7.7) Lymphocytes # (Auto) 1.4 x10^3/uL (1.0-4.8) Monocytes # (Auto) 0.6 x10^3/uL (0.0-1.1) Eosinophils # (Auto) 0.1 x10^3/uL (0.0-0.7) Basophils # (Auto) 0.1 x10^3/uL (0.0-0.2) Sodium Level 140 mmol/L (136-145) Potassium Level 3.8 mmol/L (3.5-5.1) Chloride Level 103 mmol/L (98-107) Carbon Dioxide Level 29 mmol/L (21-32) Anion Gap 8 (6-14) Blood Urea Nitrogen 20 mg/dL (8-26) Creatinine 1.3 mg/dL (0.7-1.3) Estimated GFR (Cockcroft-Gault) 65.7 Glucose Level 102 mg/dL (70-99) H Calcium Level 9.4 mg/dL (8.5-10.1) Laboratory Tests 03/18/18 04:00 Laboratory Tests 03/18/18 04:00 EKG EKG EKG shows a sinus rhythm at 54 bpm, with a sinus arrhythmia. Incomplete right bundle branch block. Normal axis, QTC of [address] elevations.[] Radiology/Procedures Radiology/Procedures CT head without contrast 03/18/2018. Reason for exam: Hypertension. Headache. Noncontrast images were performed. Exposure: One or more of the following individualized dose reduction techniques were utilized for this examination: 1. Automated exposure control 2. Adjustment of the mA and/or kV according to patient size 3. Use of iterative reconstruction technique. Comparison is made with a prior study of 03/04/2018. FINDINGS: There is no apparent intracranial mass, hemorrhage or abnormal extra-axial fluid collection. No new area of abnormal density is seen. The ventricles and basilar cisterns are normally positioned. The sinuses and mastoid air cells appear clear. IMPRESSION: No acute abnormality. AP portable chest 03/18/2018. Reason for exam: Hypertension. There are no available comparison studies. No infiltrate or effusion is seen. Heart size and pulmonary vascularity appear normal. Tortuosity of the descending thoracic aorta may relate to the history of hypertension. IMPRESSION: No acute cardiac pulmonary disease.[] Course & Med Decision Making Course & Med Decision Making Pertinent Labs and Imaging studies reviewed. (See chart for details) Medical decision making: There is no evidence of intracranial mass or bleed. No evidence of end organ dysfunction from his hypertension. No evidence of hypertensive crisis. ED course: Patient arrived, was placed in bed, in tolerated exam well. Patient had his blood pressure repeated serially and it improved to 149/78. After the return of the lab and imaging findings, these findings were discussed chest with the patient and his family voiced understanding. All questions were answered. Patient was discharged in improved condition.[] Dragon Disclaimer Dragon Disclaimer This electronic medical record was generated, in whole or in part, using a voice recognition dictation system. Departure Departure Impression: Primary Impression: Hypertension Additional Impression: Headache Disposition: HOME, SELF-CARE Condition: GOOD Referrals: NABILA JAIMES (PCP) Follow-up in 2 days Patient Instructions: DASH Diet, General Headache Without Cause, Hypertension Additional Instructions: Follow-up with your regular doctor in 2 days for management of your hypertension. Avoid anti-inflammatory medications for headaches because these may increase her blood pressure. Do not drink alcohol until he follow-up with your regular doctor for hypertension management. Take Tylenol as directed on the package, as needed for headache. Do not take any other medications or drugs that are not prescribed for you. Scripts Acetaminophen (TYLENOL) 325 Mg Tablet 1-2 TAB PO QID, #30 TAB 0 Refills Prov: JAMIE MORENO DO 03/18/18 Problem Qualifiers Primary Impression: Hypertension Hypertension type: unspecified Qualified Codes: I10 - Essential (primary) hypertension Additional Impression: Headache Headache type: unspecified Headache chronicity pattern: acute headache Intractability: not intractable Qualified Codes: R51 - Headache JAMIE MORENO DO Mar 18, 2018 03:59
[2018-03-18 04:13] LABS: BASO # 0.1 x10^3/uL (0.0-0.2); BASO % 1 % (0-3); EOS # 0.1 x10^3/uL (0.0-0.7); EOS % 1 % (0-3); HEMATOCRIT 38.7 % (39.0-53.0); HEMOGLOBIN 13.6 g/dL (13.0-17.5); LYMPH # 1.4 x10^3/uL (1.0-4.8); LYMPH % 22 % (24-48); MEAN CORPUSCULAR HEMOGLOBIN 34 pg (25-35); MEAN CORPUSCULAR HGB CONC 35 g/dL (31-37); MEAN CORPUSCULAR VOLUME 95 fL (79-100); MONO # 0.6 x10^3/uL (0.0-1.1); MONO % 9 % (0-9); NEUT # 4.5 x10^3uL (1.8-7.7); NEUT % 68 % (31-73); PLATELET COUNT 176 x10^3/uL (140-400); RED BLOOD COUNT 4.05 x10^6/uL (4.30-5.70); RED CELL DISTRIBUTION WIDTH 13.7 % (11.5-14.5); WHITE BLOOD COUNT 6.7 x10^3/uL (4.0-11.0)
[2018-03-18 04:19] LABS: CALCIUM 9.4 mg/dL (8.5-10.1); CREATININE 1.3 mg/dL (0.7-1.3); GFR 65.7; POTASSIUM 3.8 mmol/L (3.5-5.1)
[2018-03-18 04:30] VITALS: BP 149/70
[2018-03-18] MEDS ORDERED: ACETAMINOPHEN 500 MG TABLET PO ONE (04:30)
[2018-03-18] MEDS ORDERED: IV NORMAL SALINE 500ML BAG 500 ML IV ONE (04:30)
--- NOTE | 2018-03-18 04:36 | RAD ---
CT head without contrast 03/18/2018. Reason for exam: Hypertension. Headache. Noncontrast images were performed. Exposure: One or more of the following individualized dose reduction techniques were utilized for this examination: 1. Automated exposure control 2. Adjustment of the mA and/or kV according to patient size 3. Use of iterative reconstruction technique. Comparison is made with a prior study of 03/04/2018. FINDINGS: There is no apparent intracranial mass, hemorrhage or abnormal extra-axial fluid collection. No new area of abnormal density is seen. The ventricles and basilar cisterns are normally positioned. The sinuses and mastoid air cells appear clear. IMPRESSION: No acute abnormality. AP portable chest 03/18/2018. Reason for exam: Hypertension. There are no available comparison studies. No infiltrate or effusion is seen. Heart size and pulmonary vascularity appear normal. Tortuosity of the descending thoracic aorta may relate to the history of hypertension. IMPRESSION: No acute cardiac pulmonary disease. Electronically signed by: Lavon Deshpande Jr., MD (03/18/2018 4:32 AM) [facility]
[2018-03-18] MEDS ORDERED: ACET325T9 PO (04:48)
--- NOTE | 2018-03-18 06:33 | EKG ---
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
== END 2018-03-18 05:12 | disposition home or self-care (01) ==
LOC: ER 03:10
DX: I10 Essential (primary) hypertension (principal); R51 Headache; E11.9 Type 2 diabetes mellitus without complications; E78.00 Pure hypercholesterolemia, unspecified
CPT/HCPCS: 36415; 70450; 71045; 80048; 85025; 93005; 99284; J7040

== ENCOUNTER 2018-07-25 02:54 | Inpatient (IN) | payer BC, MEDICARE ==
[~2018-07-25] VITALS: Ht 180.3 cm; Wt 74.2 kg
[~2018-07-25 02:54] MED LIST changes: +ACET325T9 PO
[2018-07-25 03:21] LABS: BASO # 0.1 x10^3/uL (0.0-0.2); BASO % 1 % (0-3); EOS # 0.1 x10^3/uL (0.0-0.7); EOS % 1 % (0-3); HEMATOCRIT 39.9 % (39.0-53.0); HEMOGLOBIN 13.4 g/dL (13.0-17.5); LYMPH # 2.4 x10^3/uL (1.0-4.8); LYMPH % 34 % (24-48); MEAN CORPUSCULAR HEMOGLOBIN 32 pg (25-35); MEAN CORPUSCULAR HGB CONC 34 g/dL (31-37); MEAN CORPUSCULAR VOLUME 95 fL (79-100); MONO # 0.6 x10^3/uL (0.0-1.1); MONO % 9 % (0-9); NEUT % 56 % (31-73); PLATELET COUNT 169 x10^3/uL (140-400); RED BLOOD COUNT 4.22 x10^6/uL (4.30-5.70); WHITE BLOOD COUNT 7.2 x10^3/uL (4.0-11.0)
[2018-07-25 03:30] LABS: PROTHROMBIN TIME PATIENT 12.5 SEC (11.7-14.0)
[2018-07-25 03:37] LABS: CALCIUM 9.7 mg/dL (8.5-10.1); CREATININE 1.1 mg/dL (0.7-1.3); GFR 79.4; POTASSIUM 3.5 mmol/L (3.5-5.1)
[2018-07-25 03:42] LABS: TOTAL BILIRUBIN 0.2 mg/dL (0.2-1.0)
--- NOTE | 2018-07-25 04:42 | RAD ---
PROCEDURE: PORTABLE CHEST 1V CLINICAL INDICATION: chest discomfort COMPARISON: None FINDINGS: No pneumothorax identified. Cardiac and mediastinal contours unremarkable. No pulmonary consolidation or acute airspace disease. No acute osseous abnormalities identified. IMPRESSION: No pulmonary consolidation or acute airspace disease. Electronically signed by: Blade Jones DO (07/25/2018 4:39 AM) [facility]
--- NOTE | 2018-07-25 05:49 | PHYS DOC ---
Past Medical History Past Medical History: Cancer, Diabetes-Type II, High Cholesterol, Hypertension Additional Past Medical Histor: PROSTATE CANCER Past Surgical History: No Surgical History Alcohol Use: Occasionally Drug Use: None Adult General Chief Complaint Chief Complaint: Palpitations HPI HPI Patient is a 73 year old white male presents to the ED with a chief complaint of palpitations. Patient states that around the event he felt a fast heart rate and so came into the ED. Currently patient states that he is asymptomatic. Review of Systems Review of Systems Patient denies fever, chills, nausea, vomiting, diarrhea, dysuria, chest pain, shortness of breath. Patient did complain of palpitations earlier tonight. Current Medications Current Medications Current Medications Medications (Trade) Dose Ordered Sig/Solo Start Time Stop Time Status Last Admin Dose Admin Aspirin (Children'S Aspirin) 324 mg 1X ONCE 07/25/18 06:45 07/25/18 06:46 DC 07/25/18 06:55 324 MG Allergies Allergies Allergies Coded Allergies Type Severity Reaction Last Updated Verified No Known Drug Allergies 08/11/16 No Physical Exam Physical Exam Constitutional: Well developed, well nourished, no acute distress, non-toxic appearance. HENT: Normocephalic, atraumatic, normocaphalic Eyes: PERRL, EOMI Neck: Normal range of motion, no tenderness, supple Cardiovascular:Heart rate regular rhythm, no murmur Resp: Bilateral breath sounds clear to auscultation Abdomen: Soft, no tenderness, no distension Skin: Warm, dry, no erythema, no rash. Back: No tenderness, no CVA tenderness. Extremities: No tenderness, ROM intact, no edema. Neurologic: Alert and oriented X 3, normal motor function, normal sensory function, no focal deficits noted. Psychologic: Affect normal, judgement normal, mood normal. Current Patient Data Vital Signs Vital Signs Date Time Temp Pulse Resp B/P (MAP) Pulse Ox O2 Delivery O2 Flow Rate FiO2 07/25/18 06:02 54 12 144/72 (96) 98 Room Air 07/25/18 02:58 97.7 97.7 Lab Values Laboratory Tests Test 07/25/18 03:10 07/25/18 05:55 White Blood Count 7.2 x10^3/uL (4.0-11.0) Red Blood Count 4.22 x10^6/uL (4.30-5.70) L Hemoglobin 13.4 g/dL (13.0-17.5) Hematocrit 39.9 % (39.0-53.0) Mean Corpuscular Volume 95 fL (79-100) Mean Corpuscular Hemoglobin 32 pg (25-35) Mean Corpuscular Hemoglobin Concent 34 g/dL (31-37) Red Cell Distribution Width 14.0 % (11.5-14.5) Platelet Count 169 x10^3/uL (140-400) Neutrophils (%) (Auto) 56 % (31-73) Lymphocytes (%) (Auto) 34 % (24-48) Monocytes (%) (Auto) 9 % (0-9) Eosinophils (%) (Auto) 1 % (0-3) Basophils (%) (Auto) 1 % (0-3) Neutrophils # (Auto) 4.0 x10^3uL (1.8-7.7) Lymphocytes # (Auto) 2.4 x10^3/uL (1.0-4.8) Monocytes # (Auto) 0.6 x10^3/uL (0.0-1.1) Eosinophils # (Auto) 0.1 x10^3/uL (0.0-0.7) Basophils # (Auto) 0.1 x10^3/uL (0.0-0.2) Prothrombin Time 12.5 SEC (11.7-14.0) Prothrombin Time INR 1.0 (0.8-1.1) Sodium Level 138 mmol/L (136-145) Potassium Level 3.5 mmol/L (3.5-5.1) Chloride Level 102 mmol/L (98-107) Carbon Dioxide Level 30 mmol/L (21-32) Anion Gap 6 (6-14) Blood Urea Nitrogen 23 mg/dL (8-26) Creatinine 1.1 mg/dL (0.7-1.3) Estimated GFR (Cockcroft-Gault) 79.4 BUN/Creatinine Ratio 21 (6-20) H Glucose Level 108 mg/dL (70-99) H Calcium Level 9.7 mg/dL (8.5-10.1) Total Bilirubin 0.2 mg/dL (0.2-1.0) Aspartate Amino Transferase (AST) 28 U/L (15-37) Alanine Aminotransferase (ALT) 32 U/L (16-63) Alkaline Phosphatase 62 U/L (46-116) Troponin I Quantitative < 0.017 ng/mL (0.000-0.055) 0.035 ng/mL (0.000-0.055) GR-Tpm-D-Type Natriuretic Peptide 66 pg/mL (0-124) Total Protein 8.0 g/dL (6.4-8.2) Albumin 4.0 g/dL (3.4-5.0) Albumin/Globulin Ratio 1.0 (1.0-1.7) Lipase 227 U/L (73-393) Thyroid Stimulating Hormone (TSH) 2.338 uIU/mL (0.358-3.74) Magnesium Level 2.1 mg/dL (1.8-2.4) Triglycerides Level 24 mg/dL (0-150) Cholesterol Level 171 mg/dL (0-200) LDL Cholesterol, Calculated 93 mg/dL (0-100) VLDL Cholesterol, Calculated 5 mg/dL (0-40) Non-HDL Cholesterol Calculated 98 mg/dL (0-129) HDL Cholesterol 73 mg/dL (40-60) H Cholesterol/HDL Ratio 2.3 Laboratory Tests 07/25/18 03:10 Laboratory Tests 07/25/18 03:10 EKG EKG EKG interpretation: 3:01 AM on 07/25/2018 HR: 68 Sinus rhythm with PACs Regular interval Normal axis Nonspecific ST changes No STEMI No acute changes from EKG on 03/18/2018 Repeat EKG interpretation 6:38 AM on 07/25/2018 HR: 62 Sinus rhythm with PVCs Regular intervals normal axis Nonspecific ST changes No STEMI No acute change from EKG earlier tonight Radiology/Procedures Radiology/Procedures PROCEDURE: PORTABLE CHEST 1V PROCEDURE: PORTABLE CHEST 1V CLINICAL INDICATION: chest discomfort COMPARISON: None FINDINGS: No pneumothorax identified. Cardiac and mediastinal contours unremarkable. No pulmonary consolidation or acute airspace disease. No acute osseous abnormalities identified. IMPRESSION: No pulmonary consolidation or acute airspace disease. Electronically signed by: Blade Jones DO (07/25/2018 4:39 AM) [facility] Course & Med Decision Making Course & Med Decision Making Pertinent Labs and Imaging studies reviewed. (See chart for details) Ordered labs, chest x-ray, EKG, troponin EKG does not show acute changes. Troponin is negative. Chest x-ray does not show any acute disease. Labs are within normal limits. Patient continues to be asymptomatic. Redraw 3 hour troponin. Repeat troponin is 0.35. repeat trop is elevated at 0.35. Repeat EKG does not show STEMI. Discussed case with Dr. Gibbons who is the hospitalist business analysis consultant. Patient will be admitted for an STEMI Heparin bolus started in ED. Discussed results and plan of care with patient. Dragon Disclaimer Dragon Disclaimer This electronic medical record was generated, in whole or in part, using a voice recognition dictation system. Departure Departure Referrals: NABILA JAIMES (PCP) ANT MARTINEZ DO July 25, 2018 05:49
[2018-07-25] MEDS ORDERED: ASPIRIN CHEWABLE 81 MG TABLET. PO ONE (06:45)
--- NOTE | 2018-07-25 06:59 | EKG ---
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 Electronically Signed On 07-26-2018 10:06:10 CDT by Lavon Hopper
[2018-07-25] MEDS ORDERED: HEPARIN for IV BOLUS 10,000 UNIT/10 ML VIAL. IV ONE ×2 (07:15)
[2018-07-25] MEDS ORDERED: HEPARIN 25,000UTS/500ML PREMIX 500 ML IV PRN (07:15)
--- NOTE | 2018-07-25 07:58 | EKG ---
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 Electronically Signed On 07-26-2018 10:09:11 CDT by Lavon Hopper
--- NOTE | 2018-07-25 12:20 | PDOC2 ---
CARDIAC CONSULT DATE OF CONSULT Date of Consult DATE: 07/25/18 TIME: 12:14 REASON FOR CONSULT Reason for Consult: Palpitations REFERRING PHYSICIAN Referring Physician: Fullbright SOURCE Source: Chart review, Patient HISTORY OF PRESENT ILLNESS HISTORY OF PRESENT ILLNESS This is a pleasant 73 yo male admitted for complains of palpitations. Reports that last night he woke to go to the bathroom when he felt that his heart was racing. a little SOA, dizzy but his palpitations lasted for about 30 minutes and finally got better before coming to ED. This is the first time he has had this. He does not really recall having any brief or sensation of palpiations in the last 2 weeks. No noted nausea or chest tightness. He has not had any CAD in the past but noted with abnormal heart beat per 48 hr holter monitor last month. He saw a design transferrer at [facility] for the first time last month and had a stress test and echocardiogram on 07/08/2018. He has not been called about the result. He was also been recently tested for MEREDITH and he is positive and now he is just waiting for his device. No exertional chest pain does get SOA at times with exertion. PAST MEDICAL HISTORY Cardiovascular: HTN, Hyperlipidemia Pulmonary: Other (MEREDITH) CENTRAL NERVOUS SYSTEM: Other (No pertinent history) GI: No pertinent hx Heme/Onc: No pertinent hx, Cancer Psych: No pertinent hx Musculoskeletal: Osteoarthritis Rheumatologic: No pertinent hx Infectious disease: No pertinent hx ENT: No pertinent hx Renal/: Chronic renal insuff (CKD2), Prostate Ca. (treated with radiation) Endocrine: Diabetes (2 diet controlled was told his A1Cs was in the 6s) Dermatology: No pertinent hx PAST SURGICAL HISTORY Past Surgical History: No pertinent history SOCIAL HISTORY Social History noncontributory to CV CURRENT MEDICATIONS CURRENT MEDICATIONS Current Medications Medications (Trade) Dose Ordered Sig/Solo Route PRN Reason Start Time Stop Time Status Last Admin Dose Admin Aspirin (Children'S Aspirin) 324 mg 1X ONCE PO 07/25/18 06:45 07/25/18 06:46 DC 07/25/18 06:55 Heparin Sodium (Porcine) (Heparin Sodium) 4,000 unit 1X ONCE IV 07/25/18 07:15 07/25/18 07:17 DC 07/25/18 07:38 Heparin Sodium/ Dextrose 500 ml @ 0 mls/hr CONT PRN IV SEE I/O RECORD 07/25/18 07:15 07/25/18 07:44 ALLERGIES ALLERGIES: Coded Allergies: No Known Drug Allergies (Unverified , 08/11/16) ROS Review of System 14 point ROS evaluated with pertinent positives noted per HPI PHYSICAL EXAM General: Alert, Oriented X3, Cooperative, No acute distress HEENT: Atraumatic, Mucous membr. moist/pink Lungs: Clear to auscultation, Normal air movement Heart: Regular rate (SR with PACs and PVCs), Other (2/6 systolic murmur to JAMES border) Abdomen: Soft, No tenderness Extremities: No cyanosis, No edema Skin: No breakdown, No significant lesion Neuro: Normal speech, Sensation intact Psych/Mental Status: Mental status NL, Mood NL MUSCULOSKELETAL: Osteoarthritic changes both hands VITALS VITALS Vital Signs Date Time Temp Pulse Resp B/P (MAP) Pulse Ox O2 Delivery O2 Flow Rate FiO2 07/25/18 11:30 62 13 140/79 (99) 98 Room Air 07/25/18 02:58 97.7 97.7 LABS Lab: Laboratory Tests Test 07/25/18 03:10 07/25/18 05:55 07/25/18 11:15 White Blood Count 7.2 x10^3/uL (4.0-11.0) Red Blood Count 4.22 x10^6/uL (4.30-5.70) Hemoglobin 13.4 g/dL (13.0-17.5) Hematocrit 39.9 % (39.0-53.0) Mean Corpuscular Volume 95 fL (79-100) Mean Corpuscular Hemoglobin 32 pg (25-35) Mean Corpuscular Hemoglobin Concent 34 g/dL (31-37) Red Cell Distribution Width 14.0 % (11.5-14.5) Platelet Count 169 x10^3/uL (140-400) Neutrophils (%) (Auto) 56 % (31-73) Lymphocytes (%) (Auto) 34 % (24-48) Monocytes (%) (Auto) 9 % (0-9) Eosinophils (%) (Auto) 1 % (0-3) Basophils (%) (Auto) 1 % (0-3) Neutrophils # (Auto) 4.0 x10^3uL (1.8-7.7) Lymphocytes # (Auto) 2.4 x10^3/uL (1.0-4.8) Monocytes # (Auto) 0.6 x10^3/uL (0.0-1.1) Eosinophils # (Auto) 0.1 x10^3/uL (0.0-0.7) Basophils # (Auto) 0.1 x10^3/uL (0.0-0.2) Prothrombin Time 12.5 SEC (11.7-14.0) Prothromb Time International Ratio 1.0 (0.8-1.1) Sodium Level 138 mmol/L (136-145) Potassium Level 3.5 mmol/L (3.5-5.1) Chloride Level 102 mmol/L (98-107) Carbon Dioxide Level 30 mmol/L (21-32) Anion Gap 6 (6-14) Blood Urea Nitrogen 23 mg/dL (8-26) Creatinine 1.1 mg/dL (0.7-1.3) Estimated GFR (Cockcroft-Gault) 79.4 BUN/Creatinine Ratio 21 (6-20) Glucose Level 108 mg/dL (70-99) Calcium Level 9.7 mg/dL (8.5-10.1) Total Bilirubin 0.2 mg/dL (0.2-1.0) Aspartate Amino Transf (AST/SGOT) 28 U/L (15-37) Alanine Aminotransferase (ALT/SGPT) 32 U/L (16-63) Alkaline Phosphatase 62 U/L (46-116) Troponin I Quantitative < 0.017 ng/mL (0.000-0.055) 0.035 ng/mL (0.000-0.055) 0.031 ng/mL (0.000-0.055) EC-Fzy-P-Type Natriuretic Peptide 66 pg/mL (0-124) Total Protein 8.0 g/dL (6.4-8.2) Albumin 4.0 g/dL (3.4-5.0) Albumin/Globulin Ratio 1.0 (1.0-1.7) Lipase 227 U/L (73-393) Thyroid Stimulating Hormone (TSH) 2.338 uIU/mL (0.358-3.74) ASSESSMENT/PLAN ASSESSMENT/PLAN 1. Palpitations: possibly some form of tachyarrhythmias lasted for about 30 minutes with MEREDITH potentially contributing 2. HTN: controlled 3. DM2: diet controlled 4. HLP: on goal 5. MEREDITH; Device is in process to be delivered. Recommendations 1. Check Mg 2. Will obtain last months 48 hour holter, MPI, TTE result 3. Will need further MCOT and will defer this to his outpt design transferrer at [facility] 4. Willl obtain accurate med list and pending records as noted above, he would benefit from TJ LANE APRN July 25, 2018 12:20
[2018-07-25 12:26] VITALS: BP 148/79
[2018-07-25 12:38] LABS: MAGNESIUM 2.1 mg/dL (1.8-2.4)
[2018-07-25 12:41] LABS: CHOLESTEROL/HDL RATIO 2.3
--- NOTE | 2018-07-25 13:17 | PDOC1 ---
History and Physical Date of Admission: Date of Admission DATE: 07/25/18 TIME: 13:03 Chief Complaint: Problems: (1) Heart palpitations Chief Complain: Palpitations History of Present Illness: HPI: Patient is a pleasant elderly -German male who presented with palpitations he insists he felt his heart racing earlier today We got to the ER he was in sinus arrhythmia at 70 bpm His troponin was initially 0.017 but now it bumped up to 0.03 which is dry third lumbar waiting the results of that racist symptoms as 7 out of 10 he has associated anxiety Describes as agonizing worse with moving His daughter and son are here I discussed the case with ER physician and the family We are going to admit the patient and consult cardiology Past Medical/Surgical History: PMH/PSH: Hypertension Allergies: Allergies: Coded Allergies: No Known Drug Allergies (Unverified , 08/11/16) Family History: Family History: Hypertension Social History: Social Hisoty: He does not drink smoke or take drugs he is retired he likes [employer] Current Medications: Current Medications Current Medications Aspirin (Children'S Aspirin) 324 mg 1X ONCE PO Last administered on 07/25/18at 06:55; Start 07/25/18 at 06:45; Stop 07/25/18 at 06:46; Status DC Heparin Sodium (Porcine) (Heparin Sodium) 4,000 unit 1X ONCE IV ; Start 07/25/18 at 07:15; Stop 07/25/18 at 07:16; Status Cancel Heparin Sodium (Porcine) (Heparin Sodium) 4,000 unit 1X ONCE IV Last administered on 07/25/18at 07:38; Start 07/25/18 at 07:15; Stop 07/25/18 at 07:17; Status DC Heparin Sodium/ Dextrose 500 ml @ 0 mls/hr CONT PRN IV SEE I/O RECORD Last administered on 07/25/18at 07:44; Start 07/25/18 at 07:15 Active Scripts Active Tylenol (Acetaminophen) 325 Mg Tablet 1-2 Tab PO QID Zyrtec (Cetirizine Hcl) 10 Mg Tablet 1 Tab PO DAILY ROS: Review of Systems Review of System REVIEW OF SYSTEMS: GENERAL: Denies weakness SKIN: No bruising, hair changes or rashes. EYES: No blurred, double or loss of vision. NOSE AND THROAT: No history of nosebleeds, hoarseness or sore throat. HEART: He complains of palpitations and feeling like his heart is racing LUNGS: Denies cough, hemoptysis, wheezing or shortness of breath. GASTROINTESTINAL: Denies changes in appetite, nausea, vomiting, diarrhea or constipation. GENITOURINARY: No history of frequency, urgency, hesitancy or nocturia. NEUROLOGIC: Denies history of numbness, tingling, tremor or weakness. PSYCHIATRIC: No history of panic, anxiety or depression. ENDOCRINE: No history of heat or cold intolerance, polyuria or polydipsia. EXTREMITIES: Denies muscle weakness, joint pain, pain on walking or stiffness. Physical Exam: Vital Signs: Vital Signs Date Time Temp Pulse Resp B/P (MAP) Pulse Ox O2 Delivery O2 Flow Rate FiO2 07/25/18 12:26 98.0 74 20 148/79 (102) 98 Room Air 98.0 Physcial Exam: GEN.: No apparent distress. Alert and oriented. HEENT: Head is normocephalic, atraumatic NECK: Supple, no JVD LUNGS: Clear to auscultation without rhonchi or wheezing HEART: RRR, S1, S2 present. Peripheral pulses intact ABDOMEN: Soft, nontender. Positive bowel sounds no organomegaly EXTREMITIES: Without any cyanosis, clubbing, or edema. Pedal pulses intact NEUROLOGIC: Normal speech, normal tone. A&O x 3 PSYCHIATRIC: Normal affect, normal mood. Stable SKIN: No ulcerations or rashes VASCULAR: Good capillary refill Labs: Labs: Laboratory Tests Test 07/25/18 03:10 07/25/18 05:55 07/25/18 11:15 White Blood Count 7.2 x10^3/uL (4.0-11.0) Red Blood Count 4.22 x10^6/uL (4.30-5.70) Hemoglobin 13.4 g/dL (13.0-17.5) Hematocrit 39.9 % (39.0-53.0) Mean Corpuscular Volume 95 fL (79-100) Mean Corpuscular Hemoglobin 32 pg (25-35) Mean Corpuscular Hemoglobin Concent 34 g/dL (31-37) Red Cell Distribution Width 14.0 % (11.5-14.5) Platelet Count 169 x10^3/uL (140-400) Neutrophils (%) (Auto) 56 % (31-73) Lymphocytes (%) (Auto) 34 % (24-48) Monocytes (%) (Auto) 9 % (0-9) Eosinophils (%) (Auto) 1 % (0-3) Basophils (%) (Auto) 1 % (0-3) Neutrophils # (Auto) 4.0 x10^3uL (1.8-7.7) Lymphocytes # (Auto) 2.4 x10^3/uL (1.0-4.8) Monocytes # (Auto) 0.6 x10^3/uL (0.0-1.1) Eosinophils # (Auto) 0.1 x10^3/uL (0.0-0.7) Basophils # (Auto) 0.1 x10^3/uL (0.0-0.2) Prothrombin Time 12.5 SEC (11.7-14.0) Prothromb Time International Ratio 1.0 (0.8-1.1) Sodium Level 138 mmol/L (136-145) Potassium Level 3.5 mmol/L (3.5-5.1) Chloride Level 102 mmol/L (98-107) Carbon Dioxide Level 30 mmol/L (21-32) Anion Gap 6 (6-14) Blood Urea Nitrogen 23 mg/dL (8-26) Creatinine 1.1 mg/dL (0.7-1.3) Estimated GFR (Cockcroft-Gault) 79.4 BUN/Creatinine Ratio 21 (6-20) Glucose Level 108 mg/dL (70-99) Calcium Level 9.7 mg/dL (8.5-10.1) Total Bilirubin 0.2 mg/dL (0.2-1.0) Aspartate Amino Transf (AST/SGOT) 28 U/L (15-37) Alanine Aminotransferase (ALT/SGPT) 32 U/L (16-63) Alkaline Phosphatase 62 U/L (46-116) Troponin I Quantitative < 0.017 ng/mL (0.000-0.055) 0.035 ng/mL (0.000-0.055) 0.031 ng/mL (0.000-0.055) BH-Iah-N-Type Natriuretic Peptide 66 pg/mL (0-124) Total Protein 8.0 g/dL (6.4-8.2) Albumin 4.0 g/dL (3.4-5.0) Albumin/Globulin Ratio 1.0 (1.0-1.7) Lipase 227 U/L (73-393) Thyroid Stimulating Hormone (TSH) 2.338 uIU/mL (0.358-3.74) Magnesium Level 2.1 mg/dL (1.8-2.4) Triglycerides Level 24 mg/dL (0-150) Cholesterol Level 171 mg/dL (0-200) LDL Cholesterol, Calculated 93 mg/dL (0-100) VLDL Cholesterol, Calculated 5 mg/dL (0-40) Non-HDL Cholesterol Calculated 98 mg/dL (0-129) HDL Cholesterol 73 mg/dL (40-60) Cholesterol/HDL Ratio 2.3 Laboratory Tests Test 07/25/18 03:10 07/25/18 05:55 07/25/18 11:15 White Blood Count 7.2 x10^3/uL (4.0-11.0) Red Blood Count 4.22 x10^6/uL (4.30-5.70) Hemoglobin 13.4 g/dL (13.0-17.5) Hematocrit 39.9 % (39.0-53.0) Mean Corpuscular Volume 95 fL (79-100) Mean Corpuscular Hemoglobin 32 pg (25-35) Mean Corpuscular Hemoglobin Concent 34 g/dL (31-37) Red Cell Distribution Width 14.0 % (11.5-14.5) Platelet Count 169 x10^3/uL (140-400) Neutrophils (%) (Auto) 56 % (31-73) Lymphocytes (%) (Auto) 34 % (24-48) Monocytes (%) (Auto) 9 % (0-9) Eosinophils (%) (Auto) 1 % (0-3) Basophils (%) (Auto) 1 % (0-3) Neutrophils # (Auto) 4.0 x10^3uL (1.8-7.7) Lymphocytes # (Auto) 2.4 x10^3/uL (1.0-4.8) Monocytes # (Auto) 0.6 x10^3/uL (0.0-1.1) Eosinophils # (Auto) 0.1 x10^3/uL (0.0-0.7) Basophils # (Auto) 0.1 x10^3/uL (0.0-0.2) Prothrombin Time 12.5 SEC (11.7-14.0) Prothromb Time International Ratio 1.0 (0.8-1.1) Sodium Level 138 mmol/L (136-145) Potassium Level 3.5 mmol/L (3.5-5.1) Chloride Level 102 mmol/L (98-107) Carbon Dioxide Level 30 mmol/L (21-32) Anion Gap 6 (6-14) Blood Urea Nitrogen 23 mg/dL (8-26) Creatinine 1.1 mg/dL (0.7-1.3) Estimated GFR (Cockcroft-Gault) 79.4 BUN/Creatinine Ratio 21 (6-20) Glucose Level 108 mg/dL (70-99) Calcium Level 9.7 mg/dL (8.5-10.1) Total Bilirubin 0.2 mg/dL (0.2-1.0) Aspartate Amino Transf (AST/SGOT) 28 U/L (15-37) Alanine Aminotransferase (ALT/SGPT) 32 U/L (16-63) Alkaline Phosphatase 62 U/L (46-116) Troponin I Quantitative < 0.017 ng/mL (0.000-0.055) 0.035 ng/mL (0.000-0.055) 0.031 ng/mL (0.000-0.055) QW-Tox-F-Type Natriuretic Peptide 66 pg/mL (0-124) Total Protein 8.0 g/dL (6.4-8.2) Albumin 4.0 g/dL (3.4-5.0) Albumin/Globulin Ratio 1.0 (1.0-1.7) Lipase 227 U/L (73-393) Thyroid Stimulating Hormone (TSH) 2.338 uIU/mL (0.358-3.74) Magnesium Level 2.1 mg/dL (1.8-2.4) Triglycerides Level 24 mg/dL (0-150) Cholesterol Level 171 mg/dL (0-200) LDL Cholesterol, Calculated 93 mg/dL (0-100) VLDL Cholesterol, Calculated 5 mg/dL (0-40) Non-HDL Cholesterol Calculated 98 mg/dL (0-129) HDL Cholesterol 73 mg/dL (40-60) Cholesterol/HDL Ratio 2.3 Assessment/Plan Assessment/Plan Assessment Palpitations with a slight bump in his troponin Plan Admit to telemetry Serial enzymes Serial EKGs Consult cardiology Echocardiogram DVT prophylaxis Home meds Total time 32 minutes MIKAYLA FERRARO III DO July 25, 2018 13:17
[2018-07-25] MEDS ORDERED: LOSA-73 PO (13:40)
[2018-07-25] MEDS ORDERED: EZET10TA18 PO (13:40)
[2018-07-25] MEDS ORDERED: DILT240C2 PO (13:40)
[2018-07-25] MEDS ORDERED: ERGO500027 PO (14:41)
[2018-07-25 14:48] VITALS: BP 128/76
[2018-07-25] MEDS: EZETIMIBE 10 MG TABLET. PO SCH (16:39)
[2018-07-25] MEDS: LOSARTAN POTASSIUM 50 MG TABLET. PO SCH (16:39)
[2018-07-25 19:00] VITALS: BP 130/67
--- NOTE | 2018-07-25 19:20 | NUR ---
Pt in bed assessment completed vss poc explained pt denies pain at this time will resume care and continue to monitor pt.
[2018-07-25] MEDS: METOPROLOL TART IMMED RELEASE 25 MG TABLET. PO SCH (21:27)
[2018-07-25 22:26] VITALS: BP 126/84
[2018-07-26 03:33] VITALS: BP 120/60
[2018-07-26 07:35] VITALS: BP 134/71
--- NOTE | 2018-07-26 08:13 | PDOC ---
PROGRESS NOTES Chief Complaint Chief Complaint Palpitations - likely underlying SVT, though has been stable HTN - controlled DM2 - diet controlled, sliding scale in house HLP - statin. Lipids look good MEREDITH - has not started use. Device is in process to be delivered History of Present Illness History of Present Illness Patient is a pleasant elderly -Cypriot male who presented with palpitations he insists he felt his heart racing 07/25/18. In ED he was in sinus arrhythmia at 70 bpm His troponin was initially 0.017 but now it bumped up to 0.03, initially reported as 0.3, so was temporarily placed on heparin GTT, since has been stopped. Did have pain which is improved now. He is hungry. Denies SOB. EKG x2 show sinus rhythm with PACs and Sinus rhythm with PVCs Vitals Vitals Vital Signs Date Time Temp Pulse Resp B/P (MAP) Pulse Ox O2 Delivery O2 Flow Rate FiO2 07/26/18 07:35 97.8 51 17 134/71 (92) 98 Room Air 97.8 Physical Exam General: Alert, Oriented X3, Cooperative, No acute distress Heart: Regular rate (SR with PACs and PVCs), Other (2/6 systolic murmur to JAMES border) Abdomen: Soft, No tenderness Extremities: No cyanosis, No edema Skin: No breakdown, No significant lesion Labs LABS Laboratory Tests Test 07/25/18 11:15 Troponin I Quantitative 0.031 ng/mL (0.000-0.055) Assessment and Plan Assessmemt and Plan Problems Medical Problems: (1) Heart palpitations Status: Acute Comment Review of Relevant I have reviewed the following items esther (where applicable) has been applied. Labs Laboratory Tests Test 07/25/18 03:10 07/25/18 05:55 07/25/18 11:15 White Blood Count 7.2 x10^3/uL (4.0-11.0) Red Blood Count 4.22 x10^6/uL (4.30-5.70) Hemoglobin 13.4 g/dL (13.0-17.5) Hematocrit 39.9 % (39.0-53.0) Mean Corpuscular Volume 95 fL (79-100) Mean Corpuscular Hemoglobin 32 pg (25-35) Mean Corpuscular Hemoglobin Concent 34 g/dL (31-37) Red Cell Distribution Width 14.0 % (11.5-14.5) Platelet Count 169 x10^3/uL (140-400) Neutrophils (%) (Auto) 56 % (31-73) Lymphocytes (%) (Auto) 34 % (24-48) Monocytes (%) (Auto) 9 % (0-9) Eosinophils (%) (Auto) 1 % (0-3) Basophils (%) (Auto) 1 % (0-3) Neutrophils # (Auto) 4.0 x10^3uL (1.8-7.7) Lymphocytes # (Auto) 2.4 x10^3/uL (1.0-4.8) Monocytes # (Auto) 0.6 x10^3/uL (0.0-1.1) Eosinophils # (Auto) 0.1 x10^3/uL (0.0-0.7) Basophils # (Auto) 0.1 x10^3/uL (0.0-0.2) Prothrombin Time 12.5 SEC (11.7-14.0) Prothromb Time International Ratio 1.0 (0.8-1.1) Sodium Level 138 mmol/L (136-145) Potassium Level 3.5 mmol/L (3.5-5.1) Chloride Level 102 mmol/L (98-107) Carbon Dioxide Level 30 mmol/L (21-32) Anion Gap 6 (6-14) Blood Urea Nitrogen 23 mg/dL (8-26) Creatinine 1.1 mg/dL (0.7-1.3) Estimated GFR (Cockcroft-Gault) 79.4 BUN/Creatinine Ratio 21 (6-20) Glucose Level 108 mg/dL (70-99) Calcium Level 9.7 mg/dL (8.5-10.1) Total Bilirubin 0.2 mg/dL (0.2-1.0) Aspartate Amino Transf (AST/SGOT) 28 U/L (15-37) Alanine Aminotransferase (ALT/SGPT) 32 U/L (16-63) Alkaline Phosphatase 62 U/L (46-116) Troponin I Quantitative < 0.017 ng/mL (0.000-0.055) 0.035 ng/mL (0.000-0.055) 0.031 ng/mL (0.000-0.055) MD-Izy-T-Type Natriuretic Peptide 66 pg/mL (0-124) Total Protein 8.0 g/dL (6.4-8.2) Albumin 4.0 g/dL (3.4-5.0) Albumin/Globulin Ratio 1.0 (1.0-1.7) Lipase 227 U/L (73-393) Thyroid Stimulating Hormone (TSH) 2.338 uIU/mL (0.358-3.74) Magnesium Level 2.1 mg/dL (1.8-2.4) Triglycerides Level 24 mg/dL (0-150) Cholesterol Level 171 mg/dL (0-200) LDL Cholesterol, Calculated 93 mg/dL (0-100) VLDL Cholesterol, Calculated 5 mg/dL (0-40) Non-HDL Cholesterol Calculated 98 mg/dL (0-129) HDL Cholesterol 73 mg/dL (40-60) Cholesterol/HDL Ratio 2.3 Laboratory Tests Test 07/25/18 11:15 Troponin I Quantitative 0.031 ng/mL (0.000-0.055) Medications Current Medications Aspirin (Children'S Aspirin) 324 mg 1X ONCE PO Last administered on 07/25/18at 06:55; Start 07/25/18 at 06:45; Stop 07/25/18 at 06:46; Status DC Heparin Sodium (Porcine) (Heparin Sodium) 4,000 unit 1X ONCE IV ; Start 07/25/18 at 07:15; Stop 07/25/18 at 07:16; Status Cancel Heparin Sodium (Porcine) (Heparin Sodium) 4,000 unit 1X ONCE IV Last administered on 07/25/18at 07:38; Start 07/25/18 at 07:15; Stop 07/25/18 at 07:17; Status DC Heparin Sodium/ Dextrose 500 ml @ 0 mls/hr CONT PRN IV SEE I/O RECORD Last administered on 07/25/18at 07:44; Start 07/25/18 at 07:15 EZETIMIBE (Zetia) 10 mg DAILY PO Last administered on 07/25/18at 16:39; Start 07/25/18 at 17:00 Losartan Potassium (Cozaar) 50 mg DAILY PO Last administered on 07/25/18at 16:39; Start 07/25/18 at 17:00 Metoprolol Tartrate (Lopressor) 25 mg BID PO Last administered on 07/25/18at 21:27; Start 07/25/18 at 21:00 Active Scripts Active Zyrtec (Cetirizine Hcl) 10 Mg Tablet 1 Tab PO DAILY Reported Vitamin D2 (Ergocalciferol (Vitamin D2)) 50,000 Unit Capsule 1 Cap PO WEEKLY Zetia (Ezetimibe) 10 Mg Tablet 1 Tab PO DAILY Losartan Potassium 50 Mg Tablet 50 Mg PO DAILY Vitals/I & O Vital Sign - Last 24 Hours 07/25/18 07/25/18 07/25/18 07/25/18 09:00 09:00 10:01 11:00 Pulse 62 60 64 66 Resp 12 11 17 20 B/P (MAP) 135/64 (87) 125/70 (88) 131/66 (87) 150/75 (100) Pulse Ox 97 97 97 98 O2 Delivery Room Air Room Air 07/25/18 07/25/18 07/25/18 07/25/18 11:30 12:26 13:18 14:48 Temp 98.0 98.1 98.0 98.1 Pulse 62 74 66 Resp 13 20 20 B/P (MAP) 140/79 (99) 148/79 (102) 128/76 (93) Pulse Ox 98 98 95 O2 Delivery Room Air Room Air Room Air Room Air 07/25/18 07/25/18 07/25/18 07/25/18 16:39 19:00 19:20 21:27 Temp 98.2 98.2 Pulse 66 62 62 Resp 16 B/P (MAP) 128/76 130/67 (88) 130/67 Pulse Ox 99 O2 Delivery Room Air Room Air 07/25/18 07/26/18 07/26/18 22:26 03:33 07:35 Temp 97.4 98.4 97.8 97.4 98.4 97.8 Pulse 64 61 51 Resp 18 16 17 B/P (MAP) 126/84 (98) 120/60 (80) 134/71 (92) Pulse Ox 98 98 98 O2 Delivery Room Air Room Air Room Air Intake and Output 0 07/25/18 07/25/18 07/26/18 15:00 23:00 07:00 Intake Total 220 ml Balance 220 ml Images CXR - No pulmonary consolidation or acute airspace disease. TU ADAMS MD July 26, 2018 08:13
[2018-07-26] MEDS: EZETIMIBE 10 MG TABLET. PO SCH (09:18)
[2018-07-26] MEDS: LOSARTAN POTASSIUM 50 MG TABLET. PO SCH (09:20)
[2018-07-26] MEDS: METOPROLOL TART IMMED RELEASE 25 MG TABLET. PO SCH (09:20)
[2018-07-26 11:00] VITALS: BP 104/61
--- NOTE | 2018-07-26 11:31 | NUR ---
SS following for discharge planning. SS reviewed pt chart. Pt is from home with spouse and is currently on room air. No discharge needs noted at this time. SS will continue to follow for pending discharge needs.
--- NOTE | 2018-07-26 14:14 | PDOC ---
CARDIO Progress Notes Date and Time Date of Service 07/26/2018 Time of Evaluation 1350 Subjective Subjective: No Chest Pain, No shortness of breath, No Palpitations Vitals Vitals Vital Signs Date Time Temp Pulse Resp B/P (MAP) Pulse Ox O2 Delivery O2 Flow Rate FiO2 07/26/18 11:00 97.9 50 16 104/61 (75) 99 Room Air 97.9 Weight Weight [ ] Input and Output Intake and Output Intake and Output 07/26/18 06:59 Intake Total 220 ml Balance 220 ml Intake Oral 220 ml # Voids 2 # Bowel Movements 1 Physical Exam HEENT: Neck Supple W Full Motion Chest: Symmetric LUNGS: Clear to Auscultation Heart: S1S2, RRR (SR/SB) Abdomen: Soft N/T Extremities: No Calf Tenderness Neurology: alert, oriented, follow commands Assessment Assessment 1. Palpitations: possibly some form of tachyarrhythmias lasted for about 30 minutes with MEREDITH potentially contributing 2. HTN: controlled 3. DM2: diet controlled 4. HLP: on goal 5. MEREDITH; Device is in process to be delivered. 6. Asymptomatic SB: lowest mid40s. with PACs otherwise maintaining SR. . Recommendations 1. No further cardizem. Continue with metoprolol low dose. and losartan 2. Unable to obtain 48 hour holter, MPI, TTE from outpt civil project engineer. Pt to follow up with his civil project engineer as scheduled in 1-2 weeks 3. Will need further MCOT and will defer this to his outpt civil project engineer at [facility] APRN July 26, 2018 14:14
[2018-07-26] MEDS ORDERED: METO25TA4 PO (14:27)
--- NOTE | 2018-07-26 14:35 | PDOC3 ---
Discharge Summary Visit Information Date of Admission: July 25, 2018 Date of Discharge: July 26, 2018 Admitting Diagnosis: Heart palpitations Final Diagnosis Problems Medical Problems: (1) Heart palpitations Status: Acute Brief Hospital Course Allergies Allergies Coded Allergies Type Severity Reaction Last Updated Verified No Known Drug Allergies 08/11/16 No Vital Signs Vital Signs Date Time Temp Pulse Resp B/P (MAP) Pulse Ox O2 Delivery O2 Flow Rate FiO2 07/26/18 11:00 97.9 50 16 104/61 (75) 99 Room Air 97.9 Lab Results Laboratory Tests Test 07/25/18 03:10 07/25/18 05:55 07/25/18 11:15 White Blood Count 7.2 x10^3/uL (4.0-11.0) Red Blood Count 4.22 x10^6/uL (4.30-5.70) Hemoglobin 13.4 g/dL (13.0-17.5) Hematocrit 39.9 % (39.0-53.0) Mean Corpuscular Volume 95 fL (79-100) Mean Corpuscular Hemoglobin 32 pg (25-35) Mean Corpuscular Hemoglobin Concent 34 g/dL (31-37) Red Cell Distribution Width 14.0 % (11.5-14.5) Platelet Count 169 x10^3/uL (140-400) Neutrophils (%) (Auto) 56 % (31-73) Lymphocytes (%) (Auto) 34 % (24-48) Monocytes (%) (Auto) 9 % (0-9) Eosinophils (%) (Auto) 1 % (0-3) Basophils (%) (Auto) 1 % (0-3) Neutrophils # (Auto) 4.0 x10^3uL (1.8-7.7) Lymphocytes # (Auto) 2.4 x10^3/uL (1.0-4.8) Monocytes # (Auto) 0.6 x10^3/uL (0.0-1.1) Eosinophils # (Auto) 0.1 x10^3/uL (0.0-0.7) Basophils # (Auto) 0.1 x10^3/uL (0.0-0.2) Prothrombin Time 12.5 SEC (11.7-14.0) Prothromb Time International Ratio 1.0 (0.8-1.1) Sodium Level 138 mmol/L (136-145) Potassium Level 3.5 mmol/L (3.5-5.1) Chloride Level 102 mmol/L (98-107) Carbon Dioxide Level 30 mmol/L (21-32) Anion Gap 6 (6-14) Blood Urea Nitrogen 23 mg/dL (8-26) Creatinine 1.1 mg/dL (0.7-1.3) Estimated GFR (Cockcroft-Gault) 79.4 BUN/Creatinine Ratio 21 (6-20) Glucose Level 108 mg/dL (70-99) Calcium Level 9.7 mg/dL (8.5-10.1) Total Bilirubin 0.2 mg/dL (0.2-1.0) Aspartate Amino Transf (AST/SGOT) 28 U/L (15-37) Alanine Aminotransferase (ALT/SGPT) 32 U/L (16-63) Alkaline Phosphatase 62 U/L (46-116) Troponin I Quantitative < 0.017 ng/mL (0.000-0.055) 0.035 ng/mL (0.000-0.055) 0.031 ng/mL (0.000-0.055) HG-Nfz-R-Type Natriuretic Peptide 66 pg/mL (0-124) Total Protein 8.0 g/dL (6.4-8.2) Albumin 4.0 g/dL (3.4-5.0) Albumin/Globulin Ratio 1.0 (1.0-1.7) Lipase 227 U/L (73-393) Thyroid Stimulating Hormone (TSH) 2.338 uIU/mL (0.358-3.74) Magnesium Level 2.1 mg/dL (1.8-2.4) Triglycerides Level 24 mg/dL (0-150) Cholesterol Level 171 mg/dL (0-200) LDL Cholesterol, Calculated 93 mg/dL (0-100) VLDL Cholesterol, Calculated 5 mg/dL (0-40) Non-HDL Cholesterol Calculated 98 mg/dL (0-129) HDL Cholesterol 73 mg/dL (40-60) Cholesterol/HDL Ratio 2.3 Brief Hospital Course Patient is a pleasant elderly -[place] male who presented with palpitations he insists he felt his heart racing 07/25/18. In ED he was in sinus arrhythmia at 70 bpm His troponin was initially 0.017 but now it bumped up to 0.03, initially reported as 0.3, so was temporarily placed on heparin GTT, since has been stopped. Did have pain which is improved now. He is hungry. Denies SOB. EKG x2 show sinus rhythm with PACs and Sinus rhythm with PVCs Was started on metoprolol 25mg BID on 07/25/18, likely this abated his sx. He has cardiology f/u outpatient Greater than 30 minute spent on discharge Palpitations - likely underlying SVT, though has been stable HTN - controlled DM2 - diet controlled, sliding scale in house HLP - statin. Lipids look good MEREDITH - has not started use. Device is in process to be delivered Discharge Information Condition at Discharge: Improved Follow Up: Weeks (2) Disposition/Orders: D/C to Home Scheduled Cetirizine Hcl (Zyrtec) 10 Mg Tablet, 1 TAB PO DAILY, #6 Ref 2 Prescribed by: BABITA SUAREZ on 12/15/172044 Last Action: Reviewed on 07/25/181340 by MELISSA IZQUIERDO Ergocalciferol (Vitamin D2) (Vitamin D2) 50,000 Unit Capsule, 1 CAP PO WEEKLY for vitamin, #4 Ref 5 (Reported) Entered as Reported by: MELISSA IZQUIERDO on 07/25/18 1441 Last Taken: Unknown Dose on Unknown Date & Time Last Action: New Order on 07/25/18 1441 by MELISSA IZQUIERDO Ezetimibe (Zetia) 10 Mg Tablet, 1 TAB PO DAILY for r, #30 Ref 5 (Reported) Entered as Reported by: MELISSA IZQUIERDO on 07/25/18 1340 Last Taken: Unknown Dose on Unknown Date & Time Last Action: Continued on 07/25/18 1603 by TJ SWAN Losartan Potassium (Losartan Potassium) 50 Mg Tablet, 50 MG PO DAILY for HYPERTENSION, (Reported) Entered as Reported by: MELISSA IZQUIERDO on 07/25/18 1340 Last Taken: Unknown Dose on Unknown Date & Time Last Action: Continued on 07/25/18 1603 by TJ SWAN Metoprolol Tartrate (Metoprolol Tartrate) 25 Mg Tablet, 25 MG PO BID for Tachyarrhthymia for 30 Days, #60 Prescribed by: TU ADAMS MD on 07/26/18 1427 Discontinued Medications Diltiazem Hcl (Cardizem Cd) 240 Mg Cap.er.24h, 1 CAP PO DAILY for arrythmia, #30 Ref 5 (Reported) Entered as Reported by: MELISSA IZQUIERDO on 07/25/18 1340 Last Taken: Unknown Dose on Unknown Date & Time Last Action: Discontinued on 07/25/18 1603 by TU REEDER MD July 26, 2018 14:35
[2018-07-26 15:00] VITALS: BP 103/68
--- NOTE | 2018-07-26 19:09 | NUR ---
Discharge Note: TONA SPENCER Discharge instructions and discharge home medications reviewed with Patient and a copy given. All questions have been answered and understanding verbalized. The following instructions and handouts were given: Diet, follow up, medications, metopropol, checking blood pressure, and palpatations Discontinued lines and drains: IV removed, no lines present. Patient discharged to home, left via ambulation to family vehicle
== END 2018-07-26 16:40 | disposition home or self-care (01) | DRG 310 ==
LOC: ER 02:54 → ED HOLD 06:56 → 2 NORTH 11:58
PROVIDERS: ADMIT Internal Medicine; ATTEND Internal Medicine
DX: I47.1 Supraventricular tachycardia (principal); E11.22 Type 2 diabetes mellitus with diabetic chronic kidney disease; E78.00 Pure hypercholesterolemia, unspecified; E78.5 Hyperlipidemia, unspecified; G47.33 Obstructive sleep apnea (adult) (pediatric); I12.9 Hypertensive chronic kidney disease with stage 1 through stage 4 chronic kidney disease, or unspecified chronic kidney disease; I49.3 Ventricular premature depolarization; N18.2 Chronic kidney disease, stage 2 (mild); Z82.49 Family history of ischemic heart disease and other diseases of the circulatory system; Z85.46 Personal history of malignant neoplasm of prostate; Z92.3 Personal history of irradiation; M19.90 Unspecified osteoarthritis, unspecified site
CPT/HCPCS: 36415; 71045; 80053; 80061; 83690; 83735; 83880; 84443; 84484; 85025; 85610; 93005; 96365; 96366; J1644; 99285-25